=== PATIENT | female | born 1980 | race Caucasian/White ===

== ENCOUNTER 2019-01-31 16:30 | Inpatient (IN) | payer MEDICAID ==
[~2019-01-31] VITALS: Ht 165.1 cm; Wt 137.4 kg
[2019-01-31] MEDS ORDERED: ROCEPHIN 1 GM/D51 G1 IM (16:40)
[2019-01-31] MEDS ORDERED: ROBAXIN500 MG PO (16:41)
[2019-01-31] MEDS ORDERED: DOXYCYCLINE HY100 M2 PO (16:41)
[2019-01-31] MEDS ORDERED: TYLENOL W/CODEI1 TAB PO (16:42)
[2019-01-31] MEDS ORDERED: MOBIC7.5 MG PO (16:42)
[2019-01-31] MEDS ORDERED: METHOTREXATE2.5 MG PO (16:43)
[2019-01-31] MEDS ORDERED: ZOLOFT50 MG PO (16:43)
[2019-01-31] MEDS ORDERED: FOLIC ACID1 MG PO (16:43)
[2019-01-31] MEDS ORDERED: PHENERGAN6.25 MG/5 PO (16:44)
[2019-01-31] MEDS ORDERED: COSENTYX IM (16:45)
[2019-01-31 17:13] LABS: BASOPHILS 0.1 % (0-2); EOSINOPHILS 0.1 % (0-7); HEMATOCRIT 42.8 % (36.0-48.0); HEMOGLOBIN 13.8 g/dL (12-16); IMMATURE GRANULOCYTES 0.4 % (0-5); LYMPHOCYTES 9.6 % (15-50); MCH 29.3 pg (26.0-34.0); MCHC 32.2 g/dL (31.0-37.0); MCV 90.9 fL (80.0-100.0); MEAN PLATELET VOLUME 9.5 fL (7.4-10.4); MONOCYTES 0.9 % (2-11); NEUTROPHILS 88.9 % (40-80); PLATELET COUNT 272 10x3/uL (130-400); RBC 4.71 10x6/uL (4.00-5.40); RDW 14.6 % (11.5-14.5); WBC 10.2 10x3/uL (4.8-10.8)
[2019-01-31 17:20] LABS: ANION GAP 12.2 mmol/L (8-16); CARBON DIOXIDE 27.6 mmol/L (21.0-32.0); CREATININE - SERUM 0.9 mg/dL (0.6-1.3); POTASSIUM - SERUM 3.8 mmol/L (3.5-5.1)
[2019-01-31 17:26] LABS: ALBUMIN 3.4 g/dL (3.4-5.0); BILIRUBIN - TOTAL 0.55 mg/dL (0.2-1.3); PROTEIN - SERUM 8.1 g/dL (6.4-8.2)
--- NOTE | 2019-01-31 17:26 | NUR ---
TRAN IN TO SEE PT.
[2019-01-31 18:34] LABS: APPEARANCE CLEAR (CLEAR); BILIRUBIN NEGATIVE (NEGATIVE); COLOR STRAW (YELLOW); GLUCOSE 100 mg/dL (NEGATIVE); KETONE NEGATIVE (NEGATIVE); NITRITE NEGATIVE (NEGATIVE); PROTEIN 2+ mg/dL (NEGATIVE); UROBILINOGEN NORMAL (NORMAL)
[2019-01-31 18:42] LABS: EPITHELIAL CELLS 0-5 /hpf (0-5); RED CELLS - URINE 0-5 /hpf (0-5); WHITE CELLS - URINE NSEEN /hpf (NEGATIVE)
[2019-01-31 18:43] LABS: BACTERIA FEW /hpf (NEGATIVE)
--- NOTE | 2019-01-31 19:33 | NUR ---
PT SITTING IN BED. RESPIRATIONS ARE EVEN AND UNLABORED.NO DISTRESS NOTED. COLOR WNL FOR RACE. IV PATENT AND INFUSING LR AT BOLUS RATE. NO SIGNS OF INFILATRATION NOTED. WILL CONTINUE TO MONITOR.
[2019-01-31 19:42] VITALS: BP 130/80
[2019-01-31 21:57] VITALS: BP 156/81; BMI 50.5
--- NOTE | 2019-01-31 22:08 | NUR ---
PATIENT SITTING UP IN BED. PATIENT COMPLAINS OF PAIN 8/10 IN HER LOWER BACK. PERIPHERAL IV TO RIGHT FA, NO REDNESS OR SWELLING. BED RAILS X2. CALL LIGHT AND BEDSIDE TABLE WITHIN REACH.
[2019-02-01 00:36] VITALS: BP 137/78
--- NOTE | 2019-02-01 02:01 | NUR ---
PATIENT COMPLAINING THAT BENEDRYL AGGRAVATES HER RESTLESS LEG SYNDROME. UPSET AND AGGITATED. ROBERT COX APN OPERATIONS OFFICER FOR [employer].
--- NOTE | 2019-02-01 02:21 | NUR ---
CALLED ANSWERING SERVICE AGAIN BECAUSE PATIENT IS UPSET AND BEGINNING TO CUSS NURSING STAFF.
--- NOTE | 2019-02-01 02:58 | NUR ---
PATIENT LEFT FLOOR TO "TAKE A WALK".
[2019-02-01 05:21] VITALS: BP 123/66
--- NOTE | 2019-02-01 06:13 | NUR ---
I have reviewed this patient and I concur with the Shift Assessment completed by the Licensed Practical Nurse today this shift.
--- NOTE | 2019-02-01 07:42 | NUR ---
PT IS RESTING IN BED WITH EYES OPEN. RESPIRATIONS ARE EVEN AND UNLABORED. PT DENIES PRESENCE OF PAIN/N/V. PT REPORTS "ITCHING" TO "RED SPOTS ALL OVER MY BODY" PT WITH RIGHT SIDED FACIAL SWELLING BUT REPORTS THAT IT IS "BETTER THAN WHAT IT WAS". REDNESS NOTED TO FACE. PT DENIES DIFFICULTY WITH BREATHING. PT DENIES PRESENCE OF PAIN/N/V AT THIS TIME. BED IS IN THE LOWEST POSITION. CALL LIGHT AND BEDSIDE TABLE ARE WITHIN REACH. SIDE RAILS X 2. PT DENIES FURTHER NEEDS. WILL CONT TO MONITOR.
[2019-02-01 09:19] VITALS: BP 132/66
[2019-02-01 12:20] VITALS: BP 126/73
[2019-02-01 12:47] LABS: UDS - AMPHET NEGATIVE QUAL (NEGATIVE); UDS - BARB NEGATIVE QUAL (NEGATIVE); UDS - BENZO NEGATIVE QUAL (NEGATIVE); UDS - COCAINE NEGATIVE QUAL (NEGATIVE); UDS - OPIATE POSITIVE QUAL (NEGATIVE); UDS - PCP NEGATIVE QUAL (NEGATIVE); UDS - THC NEGATIVE QUAL (NEGATIVE)
[2019-02-01 17:04] VITALS: BP 124/66
[2019-02-01 20:00] VITALS: BP 138/84
[2019-02-02] VITALS: BP 133/81
[2019-02-02 04:00] VITALS: BP 134/70
[2019-02-02 07:06] LABS: CALC OSMOLALITY 281 mosm/kg (275-300); CALCIUM 8.5 mg/dL (8.5-10.1); CARBON DIOXIDE 27.3 mmol/L (21.0-32.0); CHLORIDE - SERUM 104 mmol/L (98-107); CREATININE - SERUM 0.7 mg/dL (0.6-1.3); MAGNESIUM - SERUM 1.7 mg/dL (1.8-2.4); POTASSIUM - SERUM 3.8 mmol/L (3.5-5.1); SODIUM 143 mmol/L (136-145); UREA NITROGEN 8 mg/dL (7-18); eGFR NON AFRICAN AMERICAN > 90 mL/min (90-120)
[2019-02-02 07:07] LABS: GLUCOSE 86 mg/dL (74-106)
--- NOTE | 2019-02-02 07:20 | NUR ---
PT IS RESTING IN BED WITH EYES CLOSED. RESPIRATIONS ARE EVEN AND UNLABORED. PT IS EASILY AROUSED WITH VERBAL STIMULATION. PT IS AAO X 4 UPON AROUSAL. RIGHT SIDED FACIAL SWELLING AND REDNESS NOTED. PT DENIES DIFFICULTY BREATHING/DYSPNEA AT THIS TIME. GENERALIZED "RED SPOTTED" RASH ALL OVER BODY THAT PT DESCRIBES ITCHY. PT DENIES PRESENCE OF N/V/PAIN AT THIS TIME. BED IS IN THE LOWEST POSITION. CALL LIGHT AND BEDSIDE TABLE ARE WITHIN REACH. SIDE RAILS X 2. PT DENIES FURTHER NEEDS. WILL CONT TO MONITOR.
[2019-02-02 07:59] LABS: BASOPHILS 0.2 % (0-2); EOSINOPHILS 0.4 % (0-7); HEMATOCRIT 39.7 % (36.0-48.0); HEMOGLOBIN 12.5 g/dL (12-16); IMMATURE GRANULOCYTES 0.5 % (0-5); LYMPHOCYTES 28.7 % (15-50); MCH 29.1 pg (26.0-34.0); MCHC 31.5 g/dL (31.0-37.0); MCV 92.5 fL (80.0-100.0); MEAN PLATELET VOLUME 9.9 fL (7.4-10.4); MONOCYTES 5.5 % (2-11); NEUTROPHILS 64.7 % (40-80); PLATELET COUNT 284 10x3/uL (130-400); RBC 4.29 10x6/uL (4.00-5.40); RDW 15.2 % (11.5-14.5); WBC 15.1 10x3/uL (4.8-10.8)
[2019-02-02 08:21] VITALS: BP 144/89
--- NOTE | 2019-02-02 10:00 | NUR ---
PT REPORTS PAIN 9/10 TO RIGHT FACE. PT STATES THAT THE PAIN MEDICATION HAS NOT WORKED AND WOULD LIKE TO TRY A DIFFERENT FORM OF MEDICATION. WILL NOTIFY ILSA FARAH APRN OF PT PAIN LEVEL AND REQUEST.
--- NOTE | 2019-02-02 10:21 | NUR ---
PT RESTING IN BED WITH EYES CLOSED. RESPIRATIONS ARE EVEN AND UNLABORED. PT IS RESTING COMFORTABLY. BED IS IN THE LOWEST POSITION. CALL LIGHT AND BEDSIDE TABLE ARE WITHIN REACH. SIDE RAILS X 2. WILL CONT TO MONITOR.
--- NOTE | 2019-02-02 11:31 | NUR ---
PT IS RESTING IN BED COMFORTABLE WITH EYES CLOSED. RESPIRATIONS ARE EVEN AND UNLABORED. BED IS IN THE LOWEST POSITION. CALL LIGHT AND BEDSIDE TABLE ARE WITHIN REAHC. SIDE RAILS X 2. WILL CONT TO MONITOR.
--- NOTE | 2019-02-02 12:02 | NUR ---
PT AAO X 4. SWELLING TO RIGHT FACE IS WORSE AT THIS TIME THAN TIME OF SHIFT ASSESSMENT THIS AM. PT REPORTS PAIN /. WILL ADDRESS. SEE EMAR. PT DENIES PRESENCE OF DYSPNEA/DIFFICULTY BREATHING AT THIS TIME. BED IS IN THE LOWEST POSITION. CALL LIGHT AND BEDSIDE TABLE ARE WITIHN REACH. SIDE RAILS X 2. WILL CONTT TO MONITOR.
[2019-02-02 12:12] VITALS: BP 121/78
[2019-02-02 15:12] VITALS: Ht 165.1 cm; Wt 137.4 kg
[2019-02-02 16:57] VITALS: BP 130/77
[2019-02-02 20:00] VITALS: BP 140/79
[2019-02-03 04:00] VITALS: BP 132/75
[2019-02-03 04:48] LABS: BASOPHILS 0.2 % (0-2); HEMATOCRIT 38.7 % (36.0-48.0); HEMOGLOBIN 11.9 g/dL (12-16); IMMATURE GRANULOCYTES 0.4 % (0-5); LYMPHOCYTES 32.5 % (15-50); MCH 28.7 pg (26.0-34.0); MCHC 30.7 g/dL (31.0-37.0); MCV 93.3 fL (80.0-100.0); MEAN PLATELET VOLUME 9.4 fL (7.4-10.4); MONOCYTES 5.3 % (2-11); NEUTROPHILS 60.6 % (40-80); PLATELET COUNT 243 10x3/uL (130-400); RBC 4.15 10x6/uL (4.00-5.40); RDW 15.1 % (11.5-14.5)
[2019-02-03 04:58] LABS: WBC 10.6 10x3/uL (4.8-10.8)
[2019-02-03 05:08] LABS: ANION GAP 7.5 mmol/L (8-16); CALCIUM 8.1 mg/dL (8.5-10.1); MAGNESIUM - SERUM 1.7 mg/dL (1.8-2.4); POTASSIUM - SERUM 3.5 mmol/L (3.5-5.1)
[2019-02-03 05:11] LABS: CREATININE - SERUM 0.9 mg/dL (0.6-1.3)
--- NOTE | 2019-02-03 07:05 | NUR ---
ALERT AND ORIENTED, RESTING IN BED. NO C/O PAIN. NO S/S OF ACUTE DISTRESS NOTED. SWELLING/REDNESS TO RIGHT SIDE OF FACE. IV TO RIGHT HAND, SL. SITE PATENT WITHOUT REDNESS OR SWELLING. DENIES ANY NEEDS AT THIS TIME. CALL LIGHT IN REACH. WILL CONTINUE TO MONITOR.
[2019-02-03 08:19] VITALS: BP 122/82
[2019-02-03] MEDS ORDERED: NICODERM C1 PATCH .1 TRANSDERM (10:43)
[2019-02-03] MEDS ORDERED: CLEOCIN HCL300 MG PO (10:44)
[2019-02-03] MEDS ORDERED: FLORAJEN3 CAPS460 MG PO (10:44)
--- NOTE | 2019-02-03 12:11 | MORECARE ---
CASE MANAGEMENT DISCHARGE SUMMARY PATIENT: FITZ MCGUIRE UNIT: [id number] ADM DATE: 02/01/19 AGE: 38 : [birth year] SEX: F ROOM/BED: D.2216 AUTHOR: VIRI STRAUSS PHYSICIAN: REFERRING PHYSICIAN: CYNTHIA ZHENG MD DATE OF SERVICE: 02/03/19 Discharge Plan Patient Name: FITZ MCGUIRE [facility] [facility] 1980 Planned Disposition: Home or Self Care Anticipated Discharge Date: Discharge Date: Expected LOS: Initial Reviewer: [email or web address] Initial Review Date: 01/31/2019 Generated: 02/03/19 1:11 pm DCPIA - Discharge Planning Initial Assessment Updated by [email or web address]: Danyell Woods on 02/03/19 12:09 pm * Is the patient Alert and Oriented? Yes * How many steps to enter\exit or inside your home? * PCP ATA * [facility] * Preadmission Environment Home Alone * ADLs Independent * Equipment None * List name and contact numbers for known caregivers / representatives who currently or will assist patient after discharge: MICHELLE (SISTER) [phone] * Verbal permission to speak to the caregivers and representatives has been obtained from the patient. N/A * Community resources currently utilized None * Additional services required to return to the preadmission environment? No * Can the patient safely return to the preadmission environment? Yes * Has this patient been hospitalized within the prior 30 days at any hospital? No Patient Name: FITZ MCGUIRE Page [phone] at 1211 All edits/amendments must be made on the electronic document DICTATION DATE: 02/03/19 1210 REMOTE SENSING ENGINEER: ARIES 02/03/19 1210 RPT#: [id number] DC DATE: STATUS: ADM IN [facility] [address] [place] [address] END OF REPORT
[2019-02-03 12:37] VITALS: BP 143/71
--- NOTE | 2019-02-03 14:55 | NUR ---
I have reviewed this patient and I concur with the Shift Assessment completed by the Licensed Practical Nurse today this shift.
--- NOTE | 2019-02-03 15:38 | NUR ---
DISCHARGED PATIENT VIA WHEELCHAIR WITH FAMILY ACCOMPANIED BY STAFF. STUDENT NURSE DISCONTINUED IV, CATHETER TIP INTACT. STUDENT NURSE GAVE PATIENT FLU SHOT TO LEFT DELTOID. WENT OVER DISCHARGE INSTRUCTIONS WITH PATIENT, VERBALIZED UNDERSTANDING. DENIES ANYTHING FURTHER.
--- NOTE | 2019-02-04 12:02 | MORECARE ---
CASE MANAGEMENT DISCHARGE SUMMARY PATIENT: FITZ MCGUIRE UNIT: [id number] ADM DATE: 02/01/19 AGE: 38 : 82 SEX: F ROOM/BED: D.2216 AUTHOR: CARLOS ADOC PHYSICIAN: REFERRING PHYSICIAN: CYNTHIA ZHENG MD DATE OF SERVICE: 02/04/19 Discharge Plan Patient Name: FITZ MCGUIRE [facility] : 1980 Planned Disposition: Home or Self Care Anticipated Discharge Date: Discharge Date: 02/03/2019 Expected LOS: 0 Initial Reviewer: [email or web address] Initial Review Date: 01/31/2019 Generated: 02/04/19 1:02 pm Comments DCP- Discharge Planning Updated by [email or web address]: Danyell Woods on 02/03/19 11:[address] Patient Name: FITZ MCGUIRE Admission Status: ER Accout number: [id number] Admission Date: 02-01-2019 : 1980 Admission Diagnosis: Attending: CYNTHIA ZHENG Current LOS: 2 Anticipated DC Date: Planned Disposition: Home or Self Care Primary Insurance: [employer] [employer] [facility] Discharge Planning Comments: CM met with patient to complete initial dc planning assessment. CM educated patient on the CM role and verbal consent given by patient to complete assessment. Patient lives at home independently at home & her sister will drive her home when discharged. At discharge patient plans to return home and feels this is a safe discharge. CM discussed availability of home health, rehab services, and medical equipment. Patient denied known discharge needs at this time. CM will continue to follow and will assist as needed with dc plans/needs. Volunteer Recruiter: Danyell Woods DCPIA - Discharge Planning Initial Assessment Updated by [email or web address]: Danyell Woods on 02/03/19 12:09 pm * Is the patient Alert and Oriented? Yes * How many steps to enter\exit or inside your home? * PCP [facility] * [facility] * Preadmission Environment Home Alone * ADLs Independent * Equipment None * List name and contact numbers for known caregivers / representatives who currently or will assist patient after discharge: MICHELLE (SISTER) [phone] * Verbal permission to speak to the caregivers and representatives has been obtained from the patient. N/A * Community resources currently utilized None * Additional services required to return to the preadmission environment? No * Can the patient safely return to the preadmission environment? Yes * Has this patient been hospitalized within the prior 30 days at any hospital? No Last DP export: 02/03/19 11:11 Patient Name: FITZ MCGUIRE Page [phone] at 1202 All edits/amendments must be made on the electronic document DICTATION DATE: 02/04/19 120 SMUDGER: ARIES 02/04/19 1202 RPT#: [id number] DC DATE:02/03/19 STATUS: DIS IN [facility] [address] [place] [address] END OF REPORT
== END 2019-02-03 15:42 | disposition home or self-care (01) | DRG 158 ==
LOC: D.ER 16:30 → OBSVTIME 19:57 → D.MS 19:57
PROVIDERS: Family Medicine; ADMIT Internal Medicine Nephrology; ATTEND Internal Medicine Nephrology
DX: K04.7 Periapical abscess without sinus (principal); L03.211 Cellulitis of face; F17.203 Nicotine dependence unspecified, with withdrawal; L40.50 Arthropathic psoriasis, unspecified; R73.9 Hyperglycemia, unspecified